=== PATIENT | female | born 1965 | race Caucasian/White ===

== ENCOUNTER 2017-01-20 12:05 | Inpatient (IN) | payer MEDICAID ==
[~2017-01-20] VITALS: Ht 170.2 cm; Wt 86.5 kg
[~2017-01-20 12:05] MED LIST: ATOR10TA; EZET1TAB26; GABA300C10; INSU100I18; INSU100V13; LISI40TA; METF750T2; METO50TA4
[2017-01-20] MEDS ORDERED: LORazepam 2 MG/ML, 1ML ONE ×2 (12:57→13:49)
[2017-01-20] MEDS ORDERED: ONDANSETRON 2MG/ML, 2ML ONE (12:57)
[2017-01-20] MEDS ORDERED: ASPIRIN 81 MG TABLET CHEW ONE (12:58)
[2017-01-20 13:00] LABS: HEMATOCRIT 43.2 % (34.6-47.8); HEMOGLOBIN 14.6 g/dL (11.7-16.4); WHITE BLOOD COUNT 11.9 x10^3/uL (3.4-10)
[2017-01-20] MEDS ORDERED: LORazepam 2 MG/ML, 1ML IVPush ONE ×2 (13:00→14:00)
[2017-01-20] MEDS ORDERED: ASPIRIN 81 MG TABLET CHEW PO ONE (13:00)
[2017-01-20] MEDS ORDERED: ONDANSETRON 2MG/ML, 2ML IVPush ONE (13:00)
[2017-01-20] MEDS ORDERED: SODIUM CHLORIDE FLUSH 10ML SYR IVF ONE (13:00)
[2017-01-20] MEDS ORDERED: SODIUM CHLORIDE 0.9% 1,000ML IVBOLUS ONE (13:00)
[2017-01-20 13:08] LABS: ASPARTATE AMINO TRANSFERASE 13 U/L (15-37); BLOOD UREA NITROGEN 10 mg/dL (7-18)
[2017-01-20 13:13] LABS: IS PT STATUS REG ER OR PRE ER? YES
[2017-01-20] MEDS ORDERED: INSULIN REGULAR 100 UNITS/ML, 3ML VIAL SQ-INSULIN ONE (13:30)
[2017-01-20] MEDS ORDERED: INSULIN REGULAR 100 UNITS/ML, 3ML VIAL ONE (13:33)
[2017-01-20] MEDS ORDERED: OXYB5TAB7 PO (14:09)
[2017-01-20] MEDS ORDERED: ALBI30PE SQ (14:09)
[2017-01-20] MEDS ORDERED: ALPR0.254 PO (14:09)
[2017-01-20] MEDS ORDERED: ROSU40TA PO (14:09)
[2017-01-20] MEDS ORDERED: TRAM50TA2 PO (14:09)
[2017-01-20] MEDS ORDERED: LISI-170 PO (14:09)
[2017-01-20] MEDS ORDERED: CLOP75TA52 PO (14:09)
[2017-01-20] MEDS ORDERED: SERT100T5 PO (14:09)
[2017-01-20] MEDS ORDERED: LEVO137T3 PO (14:09)
[2017-01-20] MEDS ORDERED: METO-93 PO (14:09)
[2017-01-20] MEDS ORDERED: NS + 20MEQ KCL 1,000 ML IV SCH (14:29)
[2017-01-20] MEDS ORDERED: hydrALAzine 20 MG/ML, 1ML IV PRN (14:30)
[2017-01-20] MEDS ORDERED: ACETAMINOPHEN 325 MG TABLET PO PRN (14:30)
[2017-01-20] MEDS ORDERED: ONDANSETRON 2MG/ML, 2ML IVPush PRN (14:30)
[2017-01-20] MEDS ORDERED: SODIUM CHLORIDE FLUSH 10ML SYR IVF PRN (14:30)
[2017-01-20] MEDS ORDERED: ENALAPRILAT 1.25 MG/ML, 2ML IV PRN (14:30)
[2017-01-20] MEDS ORDERED: POLYETHYLENE GLYCOL 17 GM PACKET PO PRN (14:30)
[2017-01-20] MEDS ORDERED: DOCUSATE 100 MG CAPSULE PO PRN (14:30)
[2017-01-20] MEDS ORDERED: ENOXAPARIN 40 MG/0.4 ML SQ SCH (14:30)
[2017-01-20] MEDS ORDERED: LABETALOL 5MG/ML, 20ML IVPush PRN (14:30)
[2017-01-20 15:10] VITALS: BP 163/107
[2017-01-20] MEDS ORDERED: INSU500I SC (15:15)
[2017-01-20] MEDS: morphine SULFATE 10 MG/ML, 1ML IVPush PRN ×5 (15:25→23:23)
[2017-01-20] MEDS ORDERED: PNEUMOCOCCAL 23 VACCINE IM-VACC ONE (16:00)
[2017-01-20] MEDS: OXYBUTYNIN CHLORIDE 5 MG TABLET PO SCH ×2 (16:13→20:52)
[2017-01-20] MEDS: INSULIN ASPART 100 UNITS/ML, PEN SQ-INSULIN SCH ×2 (16:36→20:53)
[2017-01-20 18:02] VITALS: BP 158/110
[2017-01-20 19:20] VITALS: BP 141/86
[2017-01-20] MEDS: METOPROLOL SUCCINATE 50 MG TAB.ER.24H PO SCH (20:39)
[2017-01-20] MEDS ORDERED: ROSUVASTATIN CALCIUM PO SCH (21:00)
[2017-01-20 21:42] LABS: IS PT STATUS REG ER OR PRE ER? NO
[2017-01-21 00:43] VITALS: BP 121/81
[2017-01-21] MEDS: OXYBUTYNIN CHLORIDE 5 MG TABLET PO SCH (06:00)
[2017-01-21] MEDS ORDERED: ASPIRIN 325 MG TABLET EC PO SCH (06:00)
[2017-01-21 06:05] LABS: BLOOD UREA NITROGEN 9 mg/dL (7-18)
[2017-01-21] MEDS ORDERED: SERTRALINE 100MG TABLET ONE (07:58)
[2017-01-21] MEDS ORDERED: LISINOPRIL 5 MG TABLET ONE (07:58)
[2017-01-21 08:10] VITALS: BP 146/88
[2017-01-21] MEDS: INSULIN ASPART 100 UNITS/ML, PEN SQ-INSULIN SCH (08:20)
[2017-01-21] MEDS: METOPROLOL SUCCINATE 50 MG TAB.ER.24H PO SCH (08:21)
[2017-01-21] MEDS ORDERED: CLOPIDOGREL 75 MG TABLET PO SCH (09:00)
[2017-01-21] MEDS ORDERED: SERTRALINE 100MG TABLET PO SCH (09:00)
[2017-01-21] MEDS ORDERED: LEVOTHYROXINE 137 MCG TABLET PO SCH (09:00)
[2017-01-21] MEDS ORDERED: LISINOPRIL 5 MG TABLET PO SCH (09:00)
== END 2017-01-21 11:35 | disposition home or self-care (01) | DRG 303 ==
LOC: ED 13:16 → EDIP 14:01 → 5SO 14:54
PROVIDERS: ADMIT Hospitalist; ATTEND Family Medicine
DX: I25.119 Atherosclerotic heart disease of native coronary artery with unspecified angina pectoris (principal); E11.65 Type 2 diabetes mellitus with hyperglycemia; I27.20 Pulmonary hypertension, unspecified; E66.9 Obesity, unspecified; E78.5 Hyperlipidemia, unspecified; E89.0 Postprocedural hypothyroidism; I10 Essential (primary) hypertension; I25.2 Old myocardial infarction; Z79.4 Long term (current) use of insulin; Z82.49 Family history of ischemic heart disease and other diseases of the circulatory system; Z68.29 Body mass index [BMI] 29.0-29.9, adult; Z83.3 Family history of diabetes mellitus; Z85.850 Personal history of malignant neoplasm of thyroid; Z95.5 Presence of coronary angioplasty implant and graft; Z90.710 Acquired absence of both cervix and uterus; Z88.5 Allergy status to narcotic agent; Z88.6 Allergy status to analgesic agent; Z23 Encounter for immunization
CPT/HCPCS: 36415; 71020; 80048; 80053; 80061; 81001; 82010; 82962; 83735; 83880; 84484; 85025; 90732; 93005; 96361; 96372; 96374; 96375; 96376; J1815; J2405; J3480; J2060; J2270; J7030

== ENCOUNTER 2018-08-19 12:39 | Inpatient (IN) | payer MEDICAID, OTHER ==
[~2018-08-19] VITALS: Ht 170.2 cm; Wt 92.2 kg
[~2018-08-19 12:39] MED LIST changes: +ALBI30PE3 SQ; +ALPR0.254 PO; +CLOP75TA52 PO; +INSU500I SC; +LEVO137T3 PO; +LISI-170 PO; +METO-93 PO; +OXYB5TAB7 PO; +ROSU40TA PO; +SERT100T32 PO; +TRAM50TA2 PO
--- NOTE | 2018-08-19 13:05 | NUR ---
PT BIB [facility] FOR MULTIPLE SYMPTOMS INCLUDING DRY COUGH, LEFT EAR PAIN, N/V, RIGHT FLANK PAIN (2 DAYS), DYSURIA (2 DAYS), INCREAS URINATION OVER LAST 30 DAYS WHILE PT WAS IN [place]USTODY WHILE IN [place]. PT REPORT SHE HAS NOT BEEN GETTING HER USUAL MEDS WHILE SHE WAS IN [place] INCLUDING HER NORMAL INSULIN. PER PT BS THIS AM WAS 405. PT RECEIVED 25 UNITS OF HUMILIN 100 THIS AM. PT ON MONITOR, IV STARTED.
[2018-08-19 13:10] LABS: MICROSCOPIC AUTO
[2018-08-19 13:15] LABS: CULTURE INDICATED? YES
[2018-08-19] MEDS ORDERED: SODIUM CHLORIDE 0.9% 1,000ML IVBOLUS ONE (13:30)
[2018-08-19] MEDS ORDERED: ACETAMINOPHEN 325 MG TABLET PO ONE (13:30)
[2018-08-19] MEDS ORDERED: CEFTRIAXONE PMX 1GM/50ML 50 ML ONE (13:38)
[2018-08-19 13:39] LABS: BASOPHILS # (AUTO) 0.04 x10^3/uL (0-0.1); BASOPHILS % (AUTO) 0 % (0-1); EOSINOPHILS % (AUTO) 1 % (1-7); LYMPHOCYTES # (AUTO) 2.29 x10^3/uL (1-3.4); LYMPHOCYTES % (AUTO) 15 % (22-44); MD NO; MEAN CORPUSCULAR HGB CONC 31.8 g/dL (32.4-35.8); MEAN CORPUSCULAR VOLUME 84.9 fL (80-100); MONOCYTES # (AUTO) 0.53 x10^3/uL (0.2-0.8); MONOCYTES % (AUTO) 4 % (2-9); NEUTROPHILS # (AUTO) 11.94 x10^3/uL (1.8-6.8); NEUTROPHILS % (AUTO) 80 % (42-75); PLATELET COUNT 321 x10^3/uL (130-400); RED BLOOD COUNT 5.17 x10^6/uL (3.82-5.3); RED CELL DISTRIBUTION WIDTH 14.9 % (9.6-15.2)
[2018-08-19] MEDS ORDERED: ACETAMINOPHEN 325 MG TABLET ONE (13:39)
[2018-08-19] MEDS ORDERED: ASPIRIN 81 MG TABLET CHEW ONE (13:41)
[2018-08-19 13:47] LABS: ALANINE AMINOTRANSFERASE 27 U/L (12-78); ALBUMIN 3.8 g/dL (3.4-5.0); ANION GAP 9 mmol/L (5-15); CALCIUM 9.3 mg/dL (8.5-10.1); CHLORIDE 98 mmol/L (98-107); CREATININE 0.96 mg/dL (0.55-1.02)
[2018-08-19] MEDS ORDERED: PIPERACILLIN/TAZO/PMX 3.375GM 50 ML ONE (13:48)
[2018-08-19 13:56] LABS: ALKALINE PHOSPHATASE 185 U/L (45-117); BILIRUBIN,TOTAL 0.5 mg/dL (0.2-1.0); FREE T4 (FREE THYROXINE) 1.84 ng/dL (0.76-1.46); THYROID STIMULATING HORMONE 0.537 mIU/L (0.358-3.740); TOTAL PROTEIN 8.2 g/dL (6.4-8.2)
[2018-08-19] MEDS ORDERED: CEFTRIAXONE PMX 1GM/50ML 50 ML IV ONE (14:00)
[2018-08-19] MEDS ORDERED: HYDR10TA4 PO (14:11)
[2018-08-19] MEDS ORDERED: METO-99 PO (14:11)
[2018-08-19] MEDS ORDERED: ROSU40TA PO (14:11)
[2018-08-19] MEDS ORDERED: EMPA25TA PO (14:11)
[2018-08-19] MEDS ORDERED: MONT10TA9 PO (14:11)
[2018-08-19] MEDS ORDERED: AMLO10TA8 PO (14:11)
[2018-08-19] MEDS ORDERED: HYDR25TA6 PO (14:11)
[2018-08-19] MEDS ORDERED: LEVO200T5 PO (14:11)
[2018-08-19] MEDS ORDERED: CETI10TA24 PO (14:11)
[2018-08-19] MEDS ORDERED: LISI40TA PO (14:11)
[2018-08-19] MEDS ORDERED: TIOT4MIS5 INH (14:11)
[2018-08-19] MEDS ORDERED: TRAM50TA2 PO (14:11)
[2018-08-19] MEDS ORDERED: EXEN2PEN SQ (14:11)
[2018-08-19] MEDS ORDERED: PANT40TA3 PO (14:11)
[2018-08-19 14:13] LABS: HEMOGLOBIN A1C 10.2 % (4.2-6.3)
[2018-08-19 14:19] LABS: ACETONE, SERUM Small (20mg/dL) mg/dL (Negative)
--- NOTE | 2018-08-19 14:22 | NUR ---
CHART UP FOR MD RECHECK. PT AWARE. VSS.
[2018-08-19] MEDS ORDERED: SODIUM CHLORIDE 0.9% 1,000 ML IV ONE (14:48)
[2018-08-19] MEDS ORDERED: SODIUM CHLORIDE FLUSH 10ML SYR IVF PRN (15:00)
[2018-08-19 15:30] VITALS: BP 135/81
[2018-08-19] MEDS ORDERED: POTASSIUM CHLORIDE 20 MEQ TAB.ER.PRT PO ONE (15:30)
[2018-08-19] MEDS ORDERED: CEFTRIAXONE PMX 2GM/50ML 50 ML IV SCH (15:30)
[2018-08-19] MEDS: hydrOXyzine 10MG TABLET PO SCH ×2 (16:00→20:51)
[2018-08-19] MEDS: IPRATROPIUM 0.5 MG/2.5 ML INHA HHN SCH ×2 (16:00→23:02)
[2018-08-19] MEDS: JARDIANCE MC SCH ×2 (16:27→22:58)
[2018-08-19] MEDS ORDERED: INSULIN REGULAR 100 UNITS/ML, 3ML VIAL SQ-INSULIN SCH (16:30)
[2018-08-19] MEDS: LACTOBACILLUS CHEW TABLET PO SCH ×2 (16:52→20:52)
[2018-08-19] MEDS: SODIUM CHLORIDE 0.9% 1,000 ML IV SCH (16:52)
[2018-08-19] MEDS: HEPARIN 5,000 UNITS/ML, 1ML SQ SCH ×2 (16:52→22:58)
[2018-08-19] MEDS: OXYBUTYNIN CHLORIDE 5 MG TABLET PO SCH ×2 (16:53→20:52)
[2018-08-19] MEDS: CARVEDILOL 12.5 MG TABLET PO SCH (16:53)
[2018-08-19] MEDS: INSULIN REGULAR 100 UNITS/ML, 3ML VIAL SQ-INSULIN SCH ×2 (17:00→18:00)
[2018-08-19] MEDS: INSULIN LISPRO 100 UNITS/ML, PEN SQ-INSULIN SCH ×2 (18:01→20:53)
[2018-08-19] MEDS: ONDANSETRON 2MG/ML, 2ML IVPush PRN (18:47)
[2018-08-19 18:51] VITALS: BP 120/77
[2018-08-19] MEDS: ATORVASTATIN 80 MG TABLET PO SCH (20:52)
[2018-08-19] MEDS ORDERED: DIPHENHYDRAMINE 25 MG CAPSULE PO PRN (23:00)
[2018-08-20] MEDS: CEFTRIAXONE PMX 2GM/50ML 50 ML IV SCH (01:26)
[2018-08-20 02:09] VITALS: BP 105/70
[2018-08-20] MEDS: IPRATROPIUM 0.5 MG/2.5 ML INHA HHN SCH ×2 (03:30→07:33)
[2018-08-20 05:30] LABS: ANION GAP 8 mmol/L (5-15); CALCIUM 8.3 mg/dL (8.5-10.1); CHLORIDE 108 mmol/L (98-107); CREATININE 0.69 mg/dL (0.55-1.02)
[2018-08-20] MEDS: ONDANSETRON ODT 4 MG PO PRN (05:30)
[2018-08-20] MEDS: CARVEDILOL 12.5 MG TABLET PO SCH ×2 (05:30→17:40)
[2018-08-20] MEDS: OXYBUTYNIN CHLORIDE 5 MG TABLET PO SCH ×4 (05:30→21:22)
[2018-08-20] MEDS: LEVOTHYROXINE 150 MCG TABLET PO SCH (05:31)
[2018-08-20 06:25] LABS: BASOPHILS # (AUTO) 0.04 x10^3/uL (0-0.1); BASOPHILS % (AUTO) 0 % (0-1); EOSINOPHILS # (AUTO) 0.28 x10^3/uL (0-0.4); EOSINOPHILS % (AUTO) 3 % (1-7); LYMPHOCYTES # (AUTO) 2.01 x10^3/uL (1-3.4); LYMPHOCYTES % (AUTO) 21 % (22-44); MD NO; MEAN CORPUSCULAR HEMOGLOBIN 27.3 pg (27.0-34.8); MEAN CORPUSCULAR HGB CONC 32.2 g/dL (32.4-35.8); MEAN CORPUSCULAR VOLUME 84.9 fL (80-100); MEAN PLATELET VOLUME 9.5 fL (7.4-10.4); MONOCYTES % (AUTO) 4 % (2-9); NEUTROPHILS # (AUTO) 6.96 x10^3/uL (1.8-6.8); NEUTROPHILS % (AUTO) 72 % (42-75); PLATELET COUNT 248 x10^3/uL (130-400); RED BLOOD COUNT 4.28 x10^6/uL (3.82-5.3)
[2018-08-20] MEDS: SODIUM CHLORIDE 0.9% 1,000 ML IV SCH (06:43)
[2018-08-20 06:47] VITALS: BP 110/73
[2018-08-20] MEDS: TEMPLATE NON-FORMULARY MED. (Empagliflozin (Jardiance) 1 TAB) HOMEMEDPO SCH (08:07)
[2018-08-20] MEDS: JARDIANCE MC SCH ×2 (08:07→16:21)
[2018-08-20] MEDS: LACTOBACILLUS CHEW TABLET PO SCH ×3 (08:21→21:22)
[2018-08-20] MEDS: INSULIN REGULAR 100 UNITS/ML, 3ML VIAL SQ-INSULIN SCH ×3 (08:21→17:40)
[2018-08-20] MEDS: INSULIN LISPRO 100 UNITS/ML, PEN SQ-INSULIN SCH ×4 (08:21→21:23)
[2018-08-20] MEDS: CLOPIDOGREL 75 MG TABLET PO SCH (08:21)
[2018-08-20] MEDS: HEPARIN 5,000 UNITS/ML, 1ML SQ SCH ×3 (08:22→23:46)
[2018-08-20] MEDS: LISINOPRIL 40 MG TABLET PO SCH (08:22)
[2018-08-20] MEDS: MONTELUKAST 10 MG TABLET PO SCH (08:22)
[2018-08-20] MEDS: PANTOPROZOLE 40MG TABLET PO SCH (08:22)
[2018-08-20] MEDS: ALBUTEROL/IPRATROPIUM 2.5MG/0.5MG, 3 ML NPPB SCH ×3 (09:00→21:00)
[2018-08-20] MEDS ORDERED: SODIUM CHLORIDE NASAL SPRAY 45ML BOTTLE NAS PRN (10:00)
[2018-08-20 14:06] VITALS: BP 113/75
[2018-08-20 17:44] VITALS: BP 127/84
[2018-08-20] MEDS: hydrOXyzine 10MG TABLET PO PRN (17:49)
[2018-08-20 19:53] VITALS: BP 110/75
[2018-08-20] MEDS: ATORVASTATIN 80 MG TABLET PO SCH (21:22)
[2018-08-21] MEDS: JARDIANCE MC SCH ×4 (00:03→23:50)
[2018-08-21] MEDS: SODIUM CHLORIDE 0.9% 1,000 ML IV SCH ×2 (01:35→21:18)
[2018-08-21] MEDS: CEFTRIAXONE PMX 2GM/50ML 50 ML IV SCH (01:35)
[2018-08-21 02:52] VITALS: BP 91/61
[2018-08-21] MEDS: ALBUTEROL/IPRATROPIUM 2.5MG/0.5MG, 3 ML NPPB SCH ×4 (03:00→19:55)
[2018-08-21] MEDS: OXYBUTYNIN CHLORIDE 5 MG TABLET PO SCH ×4 (05:37→20:34)
[2018-08-21] MEDS: LEVOTHYROXINE 150 MCG TABLET PO SCH (05:37)
[2018-08-21] MEDS: CARVEDILOL 12.5 MG TABLET PO SCH ×2 (05:37→19:08)
[2018-08-21 07:29] VITALS: BP 125/84
[2018-08-21 08:02] LABS: BASOPHILS # (AUTO) 0.04 x10^3/uL (0-0.1); BASOPHILS % (AUTO) 1 % (0-1); EOSINOPHILS # (AUTO) 0.24 x10^3/uL (0-0.4); EOSINOPHILS % (AUTO) 3 % (1-7); LYMPHOCYTES # (AUTO) 1.77 x10^3/uL (1-3.4); LYMPHOCYTES % (AUTO) 18 % (22-44); MD NO; MEAN CORPUSCULAR HEMOGLOBIN 26.6 pg (27.0-34.8); MEAN CORPUSCULAR HGB CONC 31.5 g/dL (32.4-35.8); MEAN CORPUSCULAR VOLUME 84.5 fL (80-100); MEAN PLATELET VOLUME 9.4 fL (7.4-10.4); MONOCYTES # (AUTO) 0.37 x10^3/uL (0.2-0.8); MONOCYTES % (AUTO) 4 % (2-9); NEUTROPHILS # (AUTO) 7.32 x10^3/uL (1.8-6.8); NEUTROPHILS % (AUTO) 75 % (42-75); PLATELET COUNT 246 x10^3/uL (130-400); RED BLOOD COUNT 4.26 x10^6/uL (3.82-5.3); RED CELL DISTRIBUTION WIDTH 15.5 % (9.6-15.2)
[2018-08-21] MEDS: LACTOBACILLUS CHEW TABLET PO SCH ×3 (08:09→20:33)
[2018-08-21] MEDS: TEMPLATE NON-FORMULARY MED. (Empagliflozin (Jardiance) 1 TAB) HOMEMEDPO SCH (08:09)
[2018-08-21] MEDS: LISINOPRIL 40 MG TABLET PO SCH (08:09)
[2018-08-21] MEDS: PANTOPROZOLE 40MG TABLET PO SCH (08:09)
[2018-08-21] MEDS: CLOPIDOGREL 75 MG TABLET PO SCH (08:09)
[2018-08-21] MEDS: MONTELUKAST 10 MG TABLET PO SCH (08:09)
[2018-08-21] MEDS: INSULIN REGULAR 100 UNITS/ML, 3ML VIAL SQ-INSULIN SCH ×3 (08:10→16:28)
[2018-08-21] MEDS: HEPARIN 5,000 UNITS/ML, 1ML SQ SCH ×3 (08:10→23:34)
[2018-08-21] MEDS: INSULIN LISPRO 100 UNITS/ML, PEN SQ-INSULIN SCH ×4 (08:11→20:37)
[2018-08-21] MEDS: ACETAMINOPHEN 325 MG TABLET PO PRN (08:20)
[2018-08-21 14:00] VITALS: BP 112/73
[2018-08-21 19:50] VITALS: BP 116/80
[2018-08-21] MEDS: ATORVASTATIN 80 MG TABLET PO SCH (20:33)
[2018-08-21] MEDS: GUAIFENESIN 200 MG TABLET PO SCH (20:34)
[2018-08-21] MEDS: hydrOXyzine 10MG TABLET PO PRN (20:34)
[2018-08-22] MEDS: CEFTRIAXONE PMX 2GM/50ML 50 ML IV SCH (01:30)
[2018-08-22 01:48] VITALS: BP 129/76
[2018-08-22] MEDS: ALBUTEROL/IPRATROPIUM 2.5MG/0.5MG, 3 ML NPPB SCH ×4 (02:10→21:00)
[2018-08-22] MEDS: OXYBUTYNIN CHLORIDE 5 MG TABLET PO SCH ×4 (05:44→20:16)
[2018-08-22] MEDS: CARVEDILOL 12.5 MG TABLET PO SCH ×2 (05:45→17:33)
[2018-08-22] MEDS: LEVOTHYROXINE 150 MCG TABLET PO SCH (05:45)
[2018-08-22 07:22] VITALS: BP 126/79
[2018-08-22] MEDS: TEMPLATE NON-FORMULARY MED. (Empagliflozin (Jardiance) 1 TAB) HOMEMEDPO SCH (07:47)
[2018-08-22] MEDS: JARDIANCE MC SCH ×2 (07:47→16:37)
[2018-08-22] MEDS: LACTOBACILLUS CHEW TABLET PO SCH ×3 (08:02→20:16)
[2018-08-22] MEDS: GUAIFENESIN 200 MG TABLET PO SCH ×2 (08:02→20:16)
[2018-08-22] MEDS: ACETAMINOPHEN 325 MG TABLET PO PRN (08:02)
[2018-08-22] MEDS: MONTELUKAST 10 MG TABLET PO SCH (08:03)
[2018-08-22] MEDS: HEPARIN 5,000 UNITS/ML, 1ML SQ SCH ×3 (08:03→23:31)
[2018-08-22] MEDS: INSULIN LISPRO 100 UNITS/ML, PEN SQ-INSULIN SCH ×4 (08:03→20:17)
[2018-08-22] MEDS: CLOPIDOGREL 75 MG TABLET PO SCH (08:03)
[2018-08-22] MEDS: PANTOPROZOLE 40MG TABLET PO SCH (08:03)
[2018-08-22] MEDS: LISINOPRIL 40 MG TABLET PO SCH (08:03)
[2018-08-22] MEDS: INSULIN REGULAR 100 UNITS/ML, 3ML VIAL SQ-INSULIN SCH ×3 (08:04→16:48)
[2018-08-22] MEDS ORDERED: BISACODYL 10 MG SUPP PR PRN (10:00)
[2018-08-22] MEDS ORDERED: MAGNESIUM CITRATE 300ML ORAL SOL PO ONE (10:00)
[2018-08-22 16:27] VITALS: BP 101/69
[2018-08-22] MEDS: ATORVASTATIN 80 MG TABLET PO SCH (20:16)
[2018-08-22] MEDS: CEFDINIR 300 MG CAPSULE PO SCH (20:16)
[2018-08-22 20:24] VITALS: BP 110/72
[2018-08-22] MEDS ORDERED: SIMETHICONE 125 MG CHEW TAB PO ONE (22:00)
[2018-08-22] MEDS: hydrOXyzine 10MG TABLET PO PRN (23:31)
[2018-08-23] MEDS: JARDIANCE MC SCH ×4 (00:30→23:48)
[2018-08-23 01:13] VITALS: BP 121/78
[2018-08-23] MEDS: ALBUTEROL/IPRATROPIUM 2.5MG/0.5MG, 3 ML NPPB SCH ×4 (01:53→21:23)
[2018-08-23] MEDS: ACETAMINOPHEN 325 MG TABLET PO PRN ×2 (04:20→20:37)
[2018-08-23 05:15] VITALS: BP 113/77
[2018-08-23] MEDS: CARVEDILOL 12.5 MG TABLET PO SCH ×2 (05:16→17:30)
[2018-08-23] MEDS: LEVOTHYROXINE 150 MCG TABLET PO SCH (05:16)
[2018-08-23] MEDS: OXYBUTYNIN CHLORIDE 5 MG TABLET PO SCH ×4 (05:16→20:37)
[2018-08-23 06:45] VITALS: BP 183/75
[2018-08-23] MEDS ORDERED: METHYLNALTREXONE 12 MG/0.6 ML SQ ONE (07:00)
[2018-08-23] MEDS: PANTOPROZOLE 40MG TABLET PO SCH (07:30)
[2018-08-23] MEDS: HEPARIN 5,000 UNITS/ML, 1ML SQ SCH ×3 (07:31→23:48)
[2018-08-23] MEDS: INSULIN LISPRO 100 UNITS/ML, PEN SQ-INSULIN SCH ×4 (08:36→20:40)
[2018-08-23] MEDS: INSULIN REGULAR 100 UNITS/ML, 3ML VIAL SQ-INSULIN SCH ×3 (08:36→17:30)
[2018-08-23] MEDS: TEMPLATE NON-FORMULARY MED. (Empagliflozin (Jardiance) 1 TAB) HOMEMEDPO SCH (08:36)
[2018-08-23] MEDS: ONDANSETRON 2MG/ML, 2ML IVPush PRN ×2 (08:47→17:47)
[2018-08-23] MEDS: CEFDINIR 300 MG CAPSULE PO SCH ×2 (08:48→20:37)
[2018-08-23] MEDS: MONTELUKAST 10 MG TABLET PO SCH (08:48)
[2018-08-23] MEDS: LISINOPRIL 40 MG TABLET PO SCH (08:48)
[2018-08-23] MEDS: GUAIFENESIN 200 MG TABLET PO SCH ×2 (08:48→20:37)
[2018-08-23] MEDS: LACTOBACILLUS CHEW TABLET PO SCH ×3 (08:48→20:37)
[2018-08-23] MEDS: CLOPIDOGREL 75 MG TABLET PO SCH (08:48)
[2018-08-23] MEDS ORDERED: ACID1TAB7 PO (10:27)
[2018-08-23] MEDS ORDERED: CARV12.543 PO (10:27)
[2018-08-23] MEDS ORDERED: ACET325T26 PO (10:27)
[2018-08-23] MEDS ORDERED: INSU500I SC (10:27)
[2018-08-23] MEDS ORDERED: CEFD300C37 PO (10:30)
[2018-08-23] MEDS ORDERED: POLYETHYLENE GLYCOL 17 GM PACKET PO PRN (13:00)
[2018-08-23] MEDS ORDERED: SENNA/DOCUSATE TABLET PO PRN (13:00)
[2018-08-23 13:07] VITALS: BP 107/72
[2018-08-23 19:48] VITALS: BP 96/56
[2018-08-23] MEDS: ATORVASTATIN 80 MG TABLET PO SCH (20:37)
[2018-08-23] MEDS: ONDANSETRON ODT 4 MG PO PRN (20:37)
[2018-08-23] MEDS: hydrOXyzine 10MG TABLET PO PRN (20:38)
[2018-08-24 00:15] VITALS: BP 110/74
[2018-08-24] MEDS ORDERED: BISACODYL 10 MG SUPP PR SCH ×2 (01:00→09:00)
[2018-08-24] MEDS ORDERED: LACTULOSE 10 GM/15 ML UDC PO ONE (01:00)
[2018-08-24] MEDS: ALBUTEROL/IPRATROPIUM 2.5MG/0.5MG, 3 ML NPPB SCH ×4 (03:00→20:41)
[2018-08-24] MEDS: ONDANSETRON ODT 4 MG PO PRN (05:22)
[2018-08-24] MEDS: OXYBUTYNIN CHLORIDE 5 MG TABLET PO SCH ×4 (05:22→21:35)
[2018-08-24] MEDS: LEVOTHYROXINE 150 MCG TABLET PO SCH (05:22)
[2018-08-24 05:28] VITALS: BP 98/65
[2018-08-24 07:12] VITALS: BP 117/70
[2018-08-24] MEDS: ONDANSETRON 2MG/ML, 2ML IVPush PRN (08:22)
[2018-08-24] MEDS: HEPARIN 5,000 UNITS/ML, 1ML SQ SCH ×2 (08:25→15:56)
[2018-08-24] MEDS: LISINOPRIL 40 MG TABLET PO SCH (08:26)
[2018-08-24] MEDS: MONTELUKAST 10 MG TABLET PO SCH (08:26)
[2018-08-24] MEDS: LACTOBACILLUS CHEW TABLET PO SCH ×3 (08:26→21:35)
[2018-08-24] MEDS: CLOPIDOGREL 75 MG TABLET PO SCH (08:26)
[2018-08-24] MEDS: INSULIN LISPRO 100 UNITS/ML, PEN SQ-INSULIN SCH ×4 (08:26→21:43)
[2018-08-24] MEDS: CEFDINIR 300 MG CAPSULE PO SCH ×2 (08:26→21:35)
[2018-08-24] MEDS: GUAIFENESIN 200 MG TABLET PO SCH ×2 (08:26→21:35)
[2018-08-24] MEDS: TEMPLATE NON-FORMULARY MED. (Empagliflozin (Jardiance) 1 TAB) HOMEMEDPO SCH (08:27)
[2018-08-24] MEDS: CARVEDILOL 12.5 MG TABLET PO SCH ×2 (08:27→18:28)
[2018-08-24] MEDS: JARDIANCE MC SCH ×2 (08:27→16:12)
[2018-08-24] MEDS: PANTOPROZOLE 40MG TABLET PO SCH (08:27)
[2018-08-24] MEDS: INSULIN REGULAR 100 UNITS/ML, 3ML VIAL SQ-INSULIN SCH ×3 (08:27→16:13)
[2018-08-24] MEDS ORDERED: BISACODYL 10 MG SUPP PR PRN (11:00)
[2018-08-24] MEDS: SODIUM CHLORIDE 0.9% 1,000 ML IV SCH (11:36)
[2018-08-24 13:12] VITALS: BP 103/69
[2018-08-24 20:36] VITALS: BP 99/67
[2018-08-24] MEDS: hydrOXyzine 10MG TABLET PO PRN (21:35)
[2018-08-24] MEDS: ATORVASTATIN 80 MG TABLET PO SCH (21:35)
[2018-08-25] MEDS: JARDIANCE MC SCH ×2 (00:21→08:18)
[2018-08-25] MEDS: HEPARIN 5,000 UNITS/ML, 1ML SQ SCH ×2 (00:21→08:17)
[2018-08-25 02:21] VITALS: BP 106/67
[2018-08-25] MEDS: ALBUTEROL/IPRATROPIUM 2.5MG/0.5MG, 3 ML NPPB SCH ×2 (02:54→07:55)
[2018-08-25 05:11] VITALS: BP 120/73
[2018-08-25] MEDS: LEVOTHYROXINE 150 MCG TABLET PO SCH (05:12)
[2018-08-25] MEDS: CARVEDILOL 12.5 MG TABLET PO SCH (05:12)
[2018-08-25] MEDS: OXYBUTYNIN CHLORIDE 5 MG TABLET PO SCH (05:12)
[2018-08-25 07:20] VITALS: BP 119/74
[2018-08-25] MEDS: LISINOPRIL 40 MG TABLET PO SCH (08:17)
[2018-08-25] MEDS: MONTELUKAST 10 MG TABLET PO SCH (08:17)
[2018-08-25] MEDS: LACTOBACILLUS CHEW TABLET PO SCH (08:17)
[2018-08-25] MEDS: CLOPIDOGREL 75 MG TABLET PO SCH (08:17)
[2018-08-25] MEDS: PANTOPROZOLE 40MG TABLET PO SCH (08:17)
[2018-08-25] MEDS: GUAIFENESIN 200 MG TABLET PO SCH (08:17)
[2018-08-25] MEDS: INSULIN LISPRO 100 UNITS/ML, PEN SQ-INSULIN SCH (08:18)
[2018-08-25] MEDS: INSULIN REGULAR 100 UNITS/ML, 3ML VIAL SQ-INSULIN SCH (08:18)
[2018-08-25] MEDS: TEMPLATE NON-FORMULARY MED. (Empagliflozin (Jardiance) 1 TAB) HOMEMEDPO SCH (08:18)
[2018-08-25] MEDS: SODIUM CHLORIDE 0.9% 1,000 ML IV SCH (08:21)
[2018-08-25] MEDS: CEFDINIR 300 MG CAPSULE PO SCH (08:22)
== END 2018-08-25 11:37 | DRG 690 ==
LOC: ED 13:50 → EDIP 14:48 → 4EST 15:33
PROVIDERS: ADMIT Internal Medicine; ATTEND Internal Medicine
DX: N12 Tubulo-interstitial nephritis, not specified as acute or chronic (principal); R65.10 Systemic inflammatory response syndrome (SIRS) of non-infectious origin without acute organ dysfunction; E87.1 Hypo-osmolality and hyponatremia; K56.7 Ileus, unspecified; E66.9 Obesity, unspecified; Z68.31 Body mass index [BMI] 31.0-31.9, adult; B96.20 Unspecified Escherichia coli [E. coli] as the cause of diseases classified elsewhere; E11.65 Type 2 diabetes mellitus with hyperglycemia; E78.5 Hyperlipidemia, unspecified; E87.6 Hypokalemia; I10 Essential (primary) hypertension; I25.10 Atherosclerotic heart disease of native coronary artery without angina pectoris; G47.33 Obstructive sleep apnea (adult) (pediatric); X58.XXXA Exposure to other specified factors, initial encounter; S86.011A Strain of right Achilles tendon, initial encounter; I27.20 Pulmonary hypertension, unspecified; K21.9 Gastro-esophageal reflux disease without esophagitis; K22.70 Barrett's esophagus without dysplasia; N30.90 Cystitis, unspecified without hematuria; T40.605A Adverse effect of unspecified narcotics, initial encounter; Z79.890 Hormone replacement therapy; Z82.49 Family history of ischemic heart disease and other diseases of the circulatory system; Z85.850 Personal history of malignant neoplasm of thyroid; Z87.891 Personal history of nicotine dependence; Z79.4 Long term (current) use of insulin; Z83.3 Family history of diabetes mellitus; Z90.710 Acquired absence of both cervix and uterus; Z95.5 Presence of coronary angioplasty implant and graft; Z88.5 Allergy status to narcotic agent; Z88.8 Allergy status to other drugs, medicaments and biological substances; Y93.89 Activity, other specified; Y92.89 Other specified places as the place of occurrence of the external cause; Y99.8 Other external cause status
CPT/HCPCS: 36415; 74018; 84145; 99291; J7620; J7644; 71045; 76770; 80048; 80053; 81001; 82010; 82800; 82947; 82962; 83036; 83605; 83690; 83735; 83880; 84100; 84439; 84443; 85025; 87040; 87077; 87086; 87186; 93005; 94640; 96365; G0378; J0696; J1644; J1815; J2405; Q0162; J7030; Q0163